=== PATIENT | female | born 1970 | race Caucasian/White ===

== ENCOUNTER 2016-08-12 19:08 | Emergency (ER) | payer OTHER ==
[~2016-08-12] VITALS: Ht 162.6 cm; Wt 107.0 kg
[2016-08-12 19:21] VITALS: BP 138/99; PULSE 93; RESP 18; TEMP 98.5; O2SAT 99
[2016-08-12] MEDS ORDERED: METF850T PO (19:29)
[2016-08-12] MEDS ORDERED: AMLO5 PO (19:29)
[2016-08-12] MEDS ORDERED: LOSA25TA PO (19:29)
--- NOTE | 2016-08-12 19:37 | PD ---
HPI Chief Complaint: Exposure to Blood/Body Fluids Time Seen by Provider: 19:32 Travel History International Travel<30 days: No Contact w/Intl Traveler<30days: No Traveled to known affect area: No History of Present Illness HPI The patient is a 46-year-old female who presents to the emergency department after needle exposure. The patient states that she was stuck in a volar aspect of the left hand by subcutaneous tissue, gauge 25, earlier today. The patient states the patient is end-stage COPD and has no known history of hepatitis B, hepatitis C, or HIV. The patient took the glove off and cleaned the site immediately. The patient states her tetanus shot is up-to-date and she is a nonresponder to hepatitis B vaccination, had 2 full sets, 3 shot series, without immunization. The patient was advised, according to the patient, by employee med not to have any further immunizations. The patient denies any personal history of hepatitis B, hepatitis C, or HIV. PFSH Past Medical History Cancer: No Cardiovascular Problems: No Diabetes: No Diminished Hearing: No Hepatitis: No Hiatal Hernia: No Hypertension: Yes Reproductive: Yes (PCOS) Respiratory: No Thyroid Disease: No ?: Not Past Surgical History Other Surgery: Yes (Fatty tumor removed from right foot) Social History Alcohol Use: No Tobacco Use: No Substance Use: No Allergies-Medications (Allergen,Severity, Reaction): Coded Allergies: Augmentin (Unverified Allergy, Severe, HIVES, 08/12/16) Reported Meds & Prescriptions Reported Meds & Active Scripts Active Reported Norvasc (Amlodipine Besylate) 5 Mg Tab 5 Mg PO DAILY Losartan (Losartan Potassium) 25 Mg Tab 25 Mg PO DAILY Metformin (Metformin HCl) 850 Mg Tab 750 Mg PO DAILY With a meal Review of Systems Musculoskeletal: No: Pain (no pain at injection site, right-hand dominant) Skin: Positive Other (puncture wound volar aspect left hand) Hematologic/Lymphatic: No: Other (denies any known history of hepatitis B, hepatitis C, or HIV) Physical Exam Narrative GENERAL: Awake, alert, very pleasant 46-year-old female who appears her stated age and is in no acute respiratory distress. SKIN: Warm and dry. HEAD: Atraumatic. Normocephalic. MUSCULOSKELETAL: Puncture wound to the volar aspect of the left hand. No active bleeding. No visible hematoma. NEUROLOGICAL: Awake and alert. No obvious cranial nerve deficits. Motor grossly within normal limits. Normal speech. PSYCHIATRIC: Appropriate mood and affect; insight and judgment normal. Data Data Last Documented VS Vital Signs Date Time Temp Pulse Resp B/P Pulse Ox O2 Delivery O2 Flow Rate FiO2 08/12/16 19:21 98.5 93 18 138/99 99 MDM Medical Decision Making Medical Screen Exam Complete: Yes Emergency Medical Condition: Yes Medical Record Reviewed: Yes Differential Diagnosis Differential diagnosis includes puncture wound, laceration, abrasion, hepatitis B exposure, hepatitis C exposure, HIV exposure Narrative Course I reviewed the history and physical of the source patient, that the patient herself brought. The patient had a terminal diagnosis of end-stage COPD and there is no mention in the past medical history of hepatitis B, hepatitis C, or HIV. The patient is low risk, subcutaneous tissue needle, gaze 25, that went through a glove. Therefore, the patient's hepatitis panel and rapid HIV will be sent to lab. No source patient blood here. I do discussion with the patient regarding prophylactic HIV therapy, no acute indication after discussion with the patient. She is advised to follow-up at employee med. Diagnosis Primary Impression: Needle exposure Qualified Code: X58.XXXA - Needle exposure, initial encounter Additional Instructions: Follow-up at employee med. Wound care to left hand. Return if symptoms worsen or progress. Disposition: 01 DISCHARGE HOME Condition: Stable El Sheehan MD Aug 12, 2016 19:37
== END 2016-08-12 20:27 | disposition home or self-care (01) ==
LOC: PHED 19:08
DX: S61.432A Puncture wound without foreign body of left hand, initial encounter (principal); I10 Essential (primary) hypertension; Z87.42 Personal history of other diseases of the female genital tract; W46.1XXA Contact with contaminated hypodermic needle, initial encounter
CPT/HCPCS: 99283